=== PATIENT | male | born 1935 | race Caucasian/White ===

== ENCOUNTER 2019-08-09 09:35 | Emergency (ER) | payer MEDICARE, BC ==
[~2019-08-09] VITALS: Ht 177.8 cm; Wt 94.3 kg
[2019-08-09] MEDS ORDERED: METO-356 PO (09:51)
[2019-08-09] MEDS ORDERED: PREG75CA PO (09:51)
[2019-08-09] MEDS ORDERED: ACET-1262 PO (09:51)
[2019-08-09] MEDS ORDERED: CHOL200074 PO (09:51)
[2019-08-09] MEDS ORDERED: AMLO5TAB9 PO (09:51)
== END 2019-08-09 09:57 | disposition home or self-care (01) ==
LOC: ER 09:35
DX: G89.29 Other chronic pain (principal); M25.511 Pain in right shoulder; I10 Essential (primary) hypertension; K21.9 Gastro-esophageal reflux disease without esophagitis; Z88.8 Allergy status to other drugs, medicaments and biological substances; Z79.899 Other long term (current) drug therapy
CPT/HCPCS: A4663